=== PATIENT | female | born 1930 | race Caucasian/White ===

== ENCOUNTER 2017-11-24 18:03 | Inpatient (IN) | payer OTHER ==
[2017-11-24 19:03] LABS: Absolute Lymphocytes (CBC) 0.5 K/uL (0.7-4.9); Absolute Neutrophil 11.9 K/uL (1.8-8.0); Basophils % 0.1 % (0-1.3); Eosinophils % 0.3 % (0-4.4); Hematocrit 37.3 % (36.0-45.0); Lymphocytes % 3.4 % (15.3-44.8); MCH 28.6 pg (27.0-35.0); MCV 87.1 fL (80-100); MPV 8.3 fL (7.6-11.3); Monocytes % 7.2 % (3.3-12.3); RBC Red Blood Cell Count 4.28 M/uL (3.86-4.86)
[2017-11-24 19:12] LABS: Protime INR 1.18
[2017-11-24] MEDS ORDERED: NA CHLORIDE 0.9% 1,000 ML ONE (19:14)
[2017-11-24 19:26] LABS: Albumin 3.2 g/dL (3.4-5.0); Bilirubin Direct 0.3 mg/dL (0-0.2); CKMB Creatine Kinase MB 1.3 ng/mL (0.3-3.6); Potassium 3.1 mmol/L (3.5-5.1); Protein, Total 7.7 g/dL (6.4-8.2)
[2017-11-24 20:25] LABS: Urine Bacteria >50 /HPF (<20); Urine Culture Reflex Order REFLEXED; Urine Mucus 2+ /HPF (NONE SEEN); Urine RBC <5 /HPF (NONE SEEN)
[2017-11-24 20:26] LABS: Urine Blood 2+ (NEG); Urine Glucose NEGATIVE (NEG); Urine Protein 3+ (NEG)
--- NOTE | 2017-11-24 21:31 | RAD REPORT ---
EXAM DESCRIPTION: CT - Abdomen Pelvis W Contrast - 11/24/2017 9:11 pm CLINICAL HISTORY: Abdominal pain. Bladder cancer COMPARISON: 2014 TECHNIQUE: Computed axial tomography of the abdomen and pelvis was obtained. 100 cc Isovue-300 is ad ministered intravenously. Oral contrast was given. All CT scans are performed using dose optimization technique as appropriate and may include automated exposure control or mA/KV adjustment according to patient size. FINDINGS: The liver, spleen, and adrenals appear unremarkable. The pancreas is atrophic. The bladder has been resected. 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 Dilatation of portions o f the ureters are unchanged from the prior exam. Hydronephrosis is not noted. A 4 centimeter fluid co llection medial to the right kidney is unchanged and may represent a cyst. Diverticula stem from the colon without evidence of diverticulitis. Bilateral inguinal hernias contain small bowel. Mild dilatation of the small bowel within the hernia is present. Contrast enters the colon. A small hiatal hernia is seen. IMPRESSION: Bladder resection with right lower quadrant ileal conduit Bilateral inguinal hernias containing small bowel
--- NOTE | 2017-11-24 21:33 | RAD REPORT ---
EXAM DESCRIPTION: [place] Single View11/24/2017 6:59 pm CLINICAL HISTORY: Fever COMPARISON: 2014 FINDINGS: The lungs appear clear of acute infiltrate. The heart is normal size IMPRESSION: No acute abnormalities displayed
[2017-11-24] MEDS ORDERED: CEFTRIAXONE/SWI 1gm 1 GM/10 ML SYR ONE (21:43)
--- NOTE | 2017-11-24 21:51 | EDPHYS ---
Physician Documentation [facility] Name: Adriana Gomes Age: 87 yrs Sex: Female : 1930 Arrival Date: 11/24/2017 Time: 18:08 Bed 14 Private MD: Steven Tamayo V ED Physician Vladislav Zavala HPI: 11/24 18:28 This 87 yrs old Female presents to ER via Wheelchair with complaints of jmm Fever, Vomiting. 18:28 The patient reports fever, that was measured at 104 degrees Fahrenheit. Onset: The jmm symptoms/episode began/occurred gradually, 2 day(s) ago. This is an 87 year old female with a history of fever, cough for 2 days with vomiting today. Patient admits to abdominal pain. Patient also complains of bilateral back pain. . Historical: - Allergies: 18:13 Bactrim DS; sv - PMHx: 18:13 Dementia; bladder CA; Vulva CA; Uterus CA; sv - PSHx: 18:13 Heart stents; bladder removal; Hysterectomy; urostomy; sv - Immunization history:: Adult Immunizations up to date. - Social history:: Smoking status: Patient/guardian denies using tobacco. - Ebola Screening: : No symptoms or risks identified at this time. ROS: 18:28 Constitutional: Positive for fever. jmm 18:28 Abdomen/GI: Positive for abdominal pain, nausea and vomiting. 18:28 Back: Positive for pain at rest. 18:28 All other systems are negative. Exam: 18:28 Constitutional: This is a well developed, well nourished patient who is awake, alert, jmm and in no acute distress. Head/Face: atraumatic. Chest/axilla: Normal chest wall appearance and motion. Cardiovascular: Regular rate and rhythm. No edema appreciated 18:28 Respiratory: the patient does not display signs of respiratory distress, Respirations: normal, Breath sounds: are clear throughout. 18:28 Abdomen/GI: Inspection: abdomen appears normal, Bowel sounds: normal, Palpation: soft, mild abdominal tenderness, in all quadrants. 18:28 Skin: Appearance: Color: normal in color. 18:28 Neuro: Orientation: 18:28 Neuro: Motor: is normal. 18:28 Psych: Behavior/mood is pleasant, cooperative. Vital Signs: 18:13 BP 155 / 71; Pulse 104; Resp 18; Temp 100.7(O); Pulse Ox 92% on R/A; Weight 66.68 kg; sv Height 5 ft. 4 in. (162.56 cm); 19:20 BP 138 / 101; Pulse 92; Resp 18; Pulse Ox 96% on R/A; ao 19:55 BP 96 / 74; Pulse 86; Resp 16; Pulse Ox 100% ; ao 20:45 BP 159 / 72; Pulse 85; Resp 17; Pulse Ox 95% on R/A; Pain 0/10; ao 21:48 BP 157 / 64; Pulse 82; Resp 22; Pulse Ox 95% on R/A; Pain 0/10; ao 22:25 BP 152 / 63; Pulse 89; Resp 18; Temp 97.9(O); Pulse Ox 96% ; ao 18:13 Body Mass Index 25.23 (66.68 kg, 162.56 cm) sv MDM: 18:27 Patient medically screened. [facility] 21:46 Data reviewed: vital signs, nurses notes, lab test result(s). Counseling: I had a [facility] detailed discussion with the patient and/or guardian regarding: the historical points, exam findings, and any diagnostic results supporting the discharge/admit diagnosis, lab results, the need for further work-up and treatment in the hospital. Physician consultation: Rene Arriaga MD. 11/24 18:40 Order name: Basic Metabolic Panel; Complete Time: 19:29 [facility] 11/24 18:40 Order name: CBC with Diff; Complete Time: 19:06 [facility] 11/24 18:40 Order name: Ckmb; Complete Time: 19:29 [facility] 11/24 18:40 Order name: CPK; Complete Time: 19:29 [facility] 11/24 18:40 Order name: LFT's; Complete Time: 19:29 [facility] 11/24 18:40 Order name: Magnesium; Complete Time: 19:29 [facility] 11/24 18:40 Order name: NT PRO-BNP; Complete Time: 19:29 [facility] 11/24 18:40 Order name: PT-INR; Complete Time: 19:16 [facility] 11/24 18:40 Order name: Ptt, Activated; Complete Time: 19:16 [facility] 11/24 18:40 Order name: Troponin (emerg Dept Use Only); Complete Time: 19:23 [facility] 11/24 18:40 Order name: Procalcitonin; Complete Time: 19:29 [facility] 11/24 18:40 Order name: Lipase; Complete Time: 19:29 [facility] 11/24 18:40 Order name: Blood Culture Adult (2) [facility] 11/24 20:05 Order name: Urine Dipstick--Ancillary (enter results); Complete Time: 20:28 cc 11/24 18:40 Order name: XRAY Chest (1 view); Complete Time: 21:34 [facility] 11/24 18:40 Order name: EKG; Complete Time: 18:41 [facility] 11/24 18:40 Order name: Cardiac monitoring; Complete Time: 19:11 [facility] 11/24 18:40 Order name: EKG - Nurse/Tech; Complete Time: 19:21 [facility] 11/24 18:40 Order name: IV Saline Lock; Complete Time: 19:10 [facility] 11/24 18:40 Order name: Labs collected and sent; Complete Time: 19:10 [facility] 11/24 18:40 Order name: O2 Per Protocol; Complete Time: 19:10 [facility] 11/24 18:40 Order name: O2 Sat Monitoring; Complete Time: 19:10 [facility] 11/24 18:40 Order name: Urine Dipstick-Ancillary (obtain specimen); Complete Time: 20:03 [facility] 11/24 18:40 Order name: CT Abd/Pelvis - W/Contrast; Complete Time: 21:33 [facility] 11/24 20:07 Order name: Urine Microscopic Only 11/24 20:07 Order name: Urine Microscopic Only; Complete Time: 20:28 EDMS 11/24 20:25 Order name: Urine Culture EDAK Administered Medications: 19:40 Drug: NS 0.9% 500 ml Route: IV; Rate: bolus; Site: left antecubital; ao 21:00 Follow up: IV Status: Completed infusion; IV Intake: 500ml ao 21:47 Drug: Rocephin - (cefTRIAXone) 1 grams Route: IVPB; Infused Over: 30 mins; Site: left ao antecubital; 22:30 Follow up: Response: No adverse reaction; IV Status: Completed infusion; IV Intake: 10mlao Disposition: 11/25 07:24 Co-signature as Attending Physician, Vladislav Zavala MD. rn Disposition: 11/24/17 21:51 Hospitalization ordered by Rene Arriaga for Inpatient Admission. Preliminary diagnosis are Urinary tract infection, site not specified, Fever, unspecified, Vomiting. - Bed requested for Telemetry/MedSurg (Inpatient). - Status is Inpatient Admission. ao - Condition is Stable. - Problem is new. - Symptoms are unchanged. UTI on Admission? Yes Signatures: Dispatcher [employer] EDMS Becca Sethi RN Kori Gutierres RN RN mw Mickail, Joel, PA PA Vladislav Villalobos MD MD rn Ortiz, Alex, RN RN ao Corrections: (The following items were deleted from the chart) 11/24 21:56 21:51 Hospitalization Ordered by Rene Arriaga MD for Inpatient Admission. Preliminary diagnosis is Urinary tract infection, site not specified; Fever, unspecified; Vomiting. Bed requested for Telemetry/MedSurg (Inpatient). Status is Inpatient Admission. Condition is Stable. Problem is new. Symptoms are unchanged. UTI on Admission? Yes. [facility] 22:28 21:56 11/24/2017 21:51 Hospitalization Ordered by Rene Arriaga MD for Inpatient ao Admission. Preliminary diagnosis is Urinary tract infection, site not specified; Fever, unspecified; Vomiting. Bed requested for Telemetry/MedSurg (Inpatient). Status is Inpatient Admission. Condition is Stable. Problem is new. Symptoms are unchanged. UTI on Admission? Yes. kaylin
--- NOTE | 2017-11-24 21:51 | ER ---
Nurse's Notes [facility] Name: Adriana Gomes Age: 87 yrs Sex: Female : 1930 Arrival Date: 11/24/2017 Time: 18:08 Bed 14 Private MD: Steven Tamayo V Diagnosis: Urinary tract infection, site not specified;Fever, unspecified;Vomiting Presentation: 11/24 18:11 Presenting complaint: Child states: fever, not eating, and vomiting x 1 day. Tmax 101, sv tried to give Tylenol but pt was not cooperative. Transition of care: patient was not received from another setting of care. Onset of symptoms was November 23, 2017. Care prior to arrival: None. 18:11 Method Of Arrival: Wheelchair sv 18:11 Acuity: OSCAR 3 sv 19:07 Risk Assessment: Do you want to hurt yourself or someone else? Patient reports no ao desire to harm self or others. Initial Sepsis Screen: Does the patient meet any 2 criteria?. 19:55 Initial Sepsis Screen: Does the patient meet any 2 criteria? Altered Mental Status. Yes ao Does the patient have a suspected source of infection? Yes: Catheter related infection (Park/dialysis/PICC/central line). Triage Assessment: 19:08 GI: Reports Caregiver report SOB and vomiting. ao Historical: - Allergies: 18:13 Bactrim DS; sv - PMHx: 18:13 Dementia; bladder CA; Vulva CA; Uterus CA; sv - PSHx: 18:13 Heart stents; bladder removal; Hysterectomy; urostomy; sv - Immunization history:: Adult Immunizations up to date. - Social history:: Smoking status: Patient/guardian denies using tobacco. - Ebola Screening: : No symptoms or risks identified at this time. Screenin:07 Abuse screen: Denies threats or abuse. Denies injuries from another. Nutritional ao screening: No deficits noted. Tuberculosis screening: No symptoms or risk factors identified. Fall Risk Fall in past 12 months (25 points). Secondary diagnosis (15 points) dementia. Assessment: 19:05 General: Appears in no apparent distress. comfortable, Behavior is calm, cooperative. ao Pain: Unable to use pain scale. FLACC scale score is 0 out of 10. Neuro: Level of Consciousness is awake, obeys commands, Oriented to person, place, Weakness. Cardiovascular: Capillary refill < 3 seconds Patient's skin is warm and dry. Respiratory: Airway is patent Trachea midline Respiratory effort is even, unlabored, Respiratory pattern is regular, symmetrical, Breath sounds are clear bilaterally. GI: Abdomen is non-distended. : No signs and/or symptoms were reported regarding the genitourinary system. EENT: No signs and/or symptoms were reported regarding the EENT system. Derm: Skin is intact, Skin is pink, warm \T\ dry. Skin temperature is warm. Musculoskeletal: Circulation, motion, and sensation intact. Range of motion: intact in all extremities. 19:53 Reassessment: Patient had [address] was notified and started timing to get CT ao done. 20:30 Reassessment: Patient appears in no apparent distress at this time. Patient and/or ao family updated on plan of care and expected duration. Pain level reassessed. Patient is alert, oriented x 3, equal unlabored respirations, skin warm/dry/pink. 21:48 Reassessment: Patient appears in no apparent distress at this time. Patient and/or ao family updated on plan of care and expected duration. Pain level reassessed. Patient is alert, oriented x 3, equal unlabored respirations, skin warm/dry/pink. Delfino WATSON at bedside talking about a possible admission. Vital Signs: 18:13 BP 155 / 71; Pulse 104; Resp 18; Temp 100.7(O); Pulse Ox 92% on R/A; Weight 66.68 kg; sv Height 5 ft. 4 in. (162.56 cm); 19:20 BP 138 / 101; Pulse 92; Resp 18; Pulse Ox 96% on R/A; ao 19:55 BP 96 / 74; Pulse 86; Resp 16; Pulse Ox 100% ; ao 20:45 BP 159 / 72; Pulse 85; Resp 17; Pulse Ox 95% on R/A; Pain 0/10; ao 21:48 BP 157 / 64; Pulse 82; Resp 22; Pulse Ox 95% on R/A; Pain 0/10; ao 22:25 BP 152 / 63; Pulse 89; Resp 18; Temp 97.9(O); Pulse Ox 96% ; ao 18:13 Body Mass Index 25.23 (66.68 kg, 162.56 cm) sv ED Course: 18:08 Patient arrived in ED. sb2 18:08 Steven Tamayo MD is Private Physician. sb2 18:12 Triage completed. sv 18:20 Baltazar Rudd PA is PHCP. jmm 18:20 Vladislav Zavala MD is Attending Physician. jmm 18:40 Shawnee Blackwood, RN is Primary Nurse. ph 18:58 X-ray completed. Portable x-ray completed in exam room. Patient tolerated procedure jw2 well. 18:59 XRAY Chest (1 view) In Process Unspecified. EDMS 19:05 Primary Nurse role handed off by Shawnee Blackwood, RN ao 19:05 Walker Grande, RN is Primary Nurse. ao 19:05 First set of blood cultures drawn by me. cc 19:05 Inserted saline lock: 20 gauge in left antecubital area, using aseptic technique. Blood cc collected. 19:07 Arm band placed on right wrist. Patient placed in an exam room, on a stretcher, on ao youth nutritional monitor, on pulse oximetry. 19:08 Patient has correct armband on for positive identification. Fall risk band placed. Bed ao in low position. Call light in reach. Side rails up X2. youth nutritional monitor on. Pulse ox on. NIBP on. 19:21 EKG done, by ED staff, reviewed by Baltazar WATSON. cc 20:[address] kc3 21:11 CT Abd/Pelvis - W/Contrast In Process Unspecified. EDMS 21:38 Urine Microscopic Only Sent. ao 21:50 Rene Arriaga MD is Hospitalizing Provider. jmm 22:26 No provider procedures requiring assistance completed. Patient admitted, IV remains in ao place. Administered Medications: 19:40 Drug: NS 0.9% 500 ml Route: IV; Rate: bolus; Site: left antecubital; ao 21:00 Follow up: IV Status: Completed infusion; IV Intake: 500ml ao 21:47 Drug: Rocephin - (cefTRIAXone) 1 grams Route: IVPB; Infused Over: 30 mins; Site: left ao antecubital; 22:30 Follow up: Response: No adverse reaction; IV Status: Completed infusion; IV Intake: 10mlao Intake: 21:00 IV: 500ml; Total: 500ml. ao 22:30 IV: 10ml; Total: 510ml. ao Outcome: 21:51 Decision to Hospitalize by Provider. augusto 22:26 Admitted to Med/surg accompanied by tech, via stretcher, room 213, with chart, Report ao called to LULÚ Mayes 22:26 Condition: stable 22:26 Instructed on the need for admit. 22:28 Patient left the ED. ao Signatures: Dispatcher [employer] EDBecca Todd, LULÚ RN Baltazar Lala PA PA jmm Christian, Chelsea cc Shawnee Blackwood RN RN ph Ortiz, Alex, RN RN ao Wailes, Jenni jw2 Bita Arce kc3 Shea Steiner sb2 Corrections: (The following items were deleted from the chart) 19:12 19:11 Inserted saline lock: 20 gauge in left antecubital area, using aseptic technique. cc Blood collected. cc
[2017-11-24] MEDS ORDERED: ONDANSETRON 4 MG/2 ML VIAL IV PRN (22:03)
[2017-11-24] MEDS ORDERED: MORPHINE 2 MG/ML SYR IV PRN (22:03)
[2017-11-24] MEDS ORDERED: ACETAMINOPHEN 500 MG TAB PO PRN (22:03)
[2017-11-24] MEDS: NA CHLORIDE 0.9% 1,000 ML IV SCH (23:12)
[2017-11-25 00:53] VITALS: BMI 25.2
[2017-11-25 05:59] LABS: Absolute Lymphocytes (CBC) 0.4 K/uL (0.7-4.9); Absolute Monocytes 0.8 K/uL (0.1-1.3); Absolute Neutrophil 11.6 K/uL (1.8-8.0); Hematocrit 32.3 % (36.0-45.0); Lymphocytes % 3.3 % (15.3-44.8); MCH 28.6 pg (27.0-35.0); MCV 86.7 fL (80-100); MPV 8.4 fL (7.6-11.3); Monocytes % 6.1 % (3.3-12.3); RBC Red Blood Cell Count 3.73 M/uL (3.86-4.86)
--- NOTE | 2017-11-25 06:29 | EKG ---
Test Date: 2017-11-24 Test Time: 19:17:50 Straight Cutter Machine: LUIS FERNANDO MEASUREMENT RESULTS: Intervals: Rate: 89 OK: 142 QRSD: 78 QT: 388 QTc: 472 [place]: P: 64 OK: 142 QRS: -37 T: 35 INTERPRETIVE STATEMENTS: Normal sinus rhythm Left axis deviation Abnormal ECG Compared to ECG 10/12/2014 11:00:56 Atrial premature complex(es) no longer present Ventricular premature complex(es) no longer present Electronically Signed On 11-25-17 06:29:11 CDT by John Luo
[2017-11-25 06:42] LABS: Albumin 2.6 g/dL (3.4-5.0); Bilirubin Total 0.8 mg/dL (0.2-1.0); Blood Morphology Comment NOT SEEN (NOT SEEN); Platelet Estimate ADEQ; Potassium 2.7 mmol/L (3.5-5.1); Protein, Total 6.3 g/dL (6.4-8.2); Urine White Blood Cell Casts OK
[2017-11-25] MEDS: NA CHLORIDE 0.9% 1,000 ML IV SCH ×2 (06:50→11:59)
[2017-11-25] MEDS ORDERED: POTASSIUM PHOS 30 MM in NA CHLORIDE 0.9% 500 ML IV ONE (07:46)
[2017-11-25] MEDS ORDERED: POTASSIUM 25 MEQ EFFERV TAB PO ONE ×2 (07:47→17:00)
--- NOTE | 2017-11-25 07:52 | P.HP ---
Certification for Inpatient Patient admitted to: Inpatient With expected LOS: >2 Midnights Patient will require the following post-hospital care: None Practitioner: I am a practitioner with admitting privileges, knowledge of patient current condition, hospital course, and medical plan of care. Services: Services provided to patient in accordance with Admission requirements found in Title 42 Section 412.3 of the Code of Federal Regulations Patient History Date of Service: 11/24/17 Reason for admission: Fever, confusion, flank pain History of Present Illness: Patient is an 87-year-old female came to the hospital with abdominal discomfort along with fever, shakes, and chills. Patient lives at home with her and her daughter. They are her main caretakers. Patient has not been doing well clinically over the last few days. She has been running a temp of a 101 and she is been more confused. Patient has had a stroke and has dementia. She is also hard of hearing. I had a hard time communicating with her and her had to assist with most of her information. She is not been herself and she is requiring more support to care for her at home. Was having fevers and abdominal discomfort. They brought her into the emergency room and her workup revealed a urinary tract infection with symptoms of pyelonephritis. She has been having intractable nausea and vomiting for the last 48 hr as well. She appears to be dehydrated and she has generalized weakness. Will give her IV fluids and IV antibiotics and reassess her in the next 24-48 hr for possible discharge home. Allergies sulfamethoxazole [From Bactrim] Allergy (Verified 01/12/14 12:27) Unknown trimethoprim [From Bactrim] Allergy (Verified 01/12/14 12:27) Unknown lactose Adverse Reaction (Verified 01/12/14 12:26) Nausea/Vomiting Bactrim DS Allergy (Uncoded 11/24/17 22:31) Unknown Home Medications: Atorvastatin Calcium [Lipitor] 40 mg PO DAILY 01/12/14 Bimatoprost [Lumigan Opthalmic Drops*] 1 gtt EACH EYE BID 01/12/14 Budesonide/Formoterol Fumarate [Symbicort 160-4.5 Mcg Inhaler] 2 puff IH BID Fluticasone [Flonase 50MCG Nasal [place]*] 2 inhaler IH DAILY 01/12/14 Gabapentin [Neurontin*] 300 mg PO BEDTIME 01/12/14 Levothyroxine [Synthroid*] 75 mcg PO DAILY 01/12/14 Metoprolol Succinate [Toprol Xl*] 100 mg PO DAILY 01/12/14 Omeprazole [Prilosec] 20 mg PO DAILY 01/12/14 Quetiapine Fumarate [Seroquel] 50 mg PO BEDTIME 01/12/14 Tramadol HCl [Ultram] 50 mg PO Q6H PRN 01/12/14 Brimonidine Tartrate/Timolol [Combigan 0.2%-0.5% Eye Drops] 1 drop OP BID Amox/Clavulanate [Augmentin 875-125 Tab] 1 each PO BID #24 tab 10/15/14 - Past Medical/Surgical History Has patient received pneumonia vaccine in the past: Yes Diabetic: No -: Hypercholesterolemia -: Hypothyroidism -: HTN -: CAD -: Cardiac Stent -: Bladder Ca -: Uterus Ca -: Vulva Ca -: ovarian ca -: polio -: Bladder removed -: Cardiac Stent -: Stoma -: hysterectomy -: tonsilectomy - Family History Mother Medical History: Heart disease, Cancer Notes: mom- colon cancer - Social History Smoking Status: Never smoker Alcohol use: No CD- Drugs: No Caffeine use: Yes Place of Residence: Home Review of Systems 10-point ROS is otherwise unremarkable Physical Examination - Vital Signs Temperature: 97.9 F Blood Pressure: 119/55 Pulse: 90 Respirations: 16 Pulse Ox (%): 90 - Physical Exam General: Alert, In no apparent distress, Oriented x1, Demented, Confused HEENT: Atraumatic, PERRLA, Mucous membr. moist/pink, Other (decreased hearing), EOMI, Sclerae nonicteric Neck: Supple, 2+ carotid pulse no bruit, No LAD, Without JVD or thyroid abnormality Respiratory: Clear to auscultation bilaterally, Normal air movement Cardiovascular: Regular rate/rhythm, Normal S1 S2, No murmurs Gastrointestinal: Normal bowel sounds, Soft and benign, Non-distended, No tenderness Musculoskeletal: No clubbing, No swelling, No tenderness Integumentary: No rashes Neurological: Normal tone, Sensation intact, Cranial nerves 3-12 intact, Abnormal gait, Abnormal speech, Abnormal strength, Abnormal tone, Abnormal affect, Dementia Lymphatics: No axilla or inguinal lymphadenopathy - Studies Laboratory Data (last 24 hrs) 11/24/17 18:50: PT 14.0 H, INR 1.18, APTT 16.6 L 11/24/17 18:50: WBC 13.4 H, Hgb 12.2, Hct 37.3, Plt Count 271 11/24/17 18:50: Sodium 137, Potassium 3.1 L, BUN 11, Creatinine 1.00, Glucose 145 H, Magnesium 2.0, Total Bilirubin 1.0, AST 26, ALT 16, Alkaline Phosphatase 99, Lipase 54 L Assessment & Plan - Problems (Diagnosis) (1) Fever Current Visit: Yes Status: Acute (2) Pyelonephritis Current Visit: Yes Status: Acute (3) Intractable nausea and vomiting Current Visit: Yes Status: Acute (4) Leukocytosis Current Visit: Yes Status: Acute (5) Dementia Current Visit: Yes Status: Acute (6) CVA (cerebral vascular accident) Current Visit: Yes Status: Acute (7) History of bladder cancer Current Visit: Yes Status: Acute - Plan Plan: 1. Aggressive IV hydration 2. IV antibiotics 3. Monitor neuro status closely 4. Physical therapy evaluation 5. Resume home medications 6. Monitor electrolytes and renal function closely 7. Monitor nutritional status closely 8. GI and DVT prophylaxis Discharge Plan: Home Plan to discharge in: 48 Hours - Advance Directives Does patient have a Living Will: No Does patient have a Durable POA for Healthcare: Yes - Code Status/Comfort Care Code Status Assessed: Yes Code Status: Full Code Critical Care: No Time Spent Managing PTS Care (In Minutes): 50
[2017-11-25] MEDS ORDERED: CEFTRIAXONE 1 GM/NS 50 ML 1 GM/50 ML BAG IV SCH (09:00)
--- NOTE | 2017-11-25 11:59 | P.PN ---
Subjective Date of Service: 11/25/17 Chief Complaint: Fever, confusion, flank pain Patient seen and examined at bedside. Chart reviewed. Currently patient is not able to provide any information. He is alert however. At baseline is very demented. at bedside providing most of the information. Patient did not have any acute events overnight. No other complaints to offer. Review of Systems General: As per HPI Physical Examination - Vital Signs Temperature: 96.6 F Blood Pressure: 121/59 Pulse: 78 Respirations: 18 Pulse Ox (%): 95 - Physical Exam General: Alert, Oriented x1, Demented, Mild distress HEENT: Atraumatic, PERRLA, EOMI Neck: Supple, JVD not distended Respiratory: Clear to auscultation bilaterally, Normal air movement Cardiovascular: Regular rate/rhythm, Normal S1 S2 Gastrointestinal: Normal bowel sounds, Soft and benign, Non-distended, No tenderness Musculoskeletal: No tenderness Integumentary: No rashes Neurological: Normal speech, Normal tone, Normal affect Lymphatics: No axilla or inguinal lymphadenopathy - Studies Laboratory Data (last 24 hrs) 11/24/17 18:50: PT 14.0 H, INR 1.18, APTT 16.6 L 11/24/17 18:50: WBC 13.4 H, Hgb 12.2, Hct 37.3, Plt Count 271 11/24/17 18:50: Sodium 137, Potassium 3.1 L, BUN 11, Creatinine 1.00, Glucose 145 H, Magnesium 2.0, Total Bilirubin 1.0, AST 26, ALT 16, Alkaline Phosphatase 99, Lipase 54 L Medications List Reviewed: Yes Assessment & Plan - Problems (Diagnosis) (1) Sepsis Current Visit: Yes Status: Acute Plan: Sepsis 2.2 to UTI -Urine culture and Blood culture + for gram - rods -On zosyn for now -WBC and LA trending down -Will continue to observe -Repeat lab gaurang AM Qualifiers: Sepsis type: sepsis due to unspecified organism Qualified Code(s): A41.9 - Sepsis, unspecified organism (2) Bacteremia Current Visit: Yes Status: Acute Plan: See # 1 (3) UTI (urinary tract infection) Onset Date: 11/25/17 Current Visit: Yes Status: Acute Plan: See # 1 Qualifiers: Urinary tract infection type: acute cystitis Hematuria presence: without hematuria Qualified Code(s): N30.00 - Acute cystitis without hematuria (4) Dementia Onset Date: 11/25/17 Current Visit: Yes Status: Chronic Qualifiers: Dementia type: unspecified type Dementia behavioral disturbance: without behavioral disturbance Qualified Code(s): F03.90 - Unspecified dementia without behavioral disturbance (5) History of bladder cancer Onset Date: 11/25/17 Current Visit: Yes Status: Chronic (6) CVA (cerebral vascular accident) Onset Date: 11/25/17 Current Visit: Yes Status: Chronic Qualifiers: CVA mechanism: unspecified Qualified Code(s): I63.9 - Cerebral infarction, unspecified Discharge Plan: Home Plan to discharge in: 72 Hours - Code Status/Comfort Care Code Status Assessed: Yes Critical Care: No
[2017-11-25] MEDS: PIPER/TAZO/NS 3.375gm 3.375 GM/100 ML BAG IVPB SCH ×2 (12:01→16:54)
--- NOTE | 2017-11-25 18:22 | ECHO ---
HEIGHT: 5 ft 4 in WEIGHT: 147 lb 0 oz DATE OF STUDY: 11/25/[address]: Emely Tellez MD 2-DIMENSIONAL: YES M.MODE: YES DOPPLER: YES COLOR FLOW: YES TDS: PORTABLE: DEFINITY: BUBBLE STUDY: DIAGNOSIS: SHORTNESS OF BREATH CARDIAC HISTORY: CATHERIZATION: NO SURGERY: NO PROSTHETIC VALVE: NO PACEMAKER: NO MEASUREMENTS (cm) DIASTOLIC (NORMALS) SYSTOLIC (NORMALS) IVSd 0.7 (0.6-1.2) LA Diam 3.2 (1.9-4.0) LVEF 59% LVIDd 3.5 (3.5-5.7) LVIDs 2.4 (2.0-3.5) %FS 31% LVPWd 1.0 (0.6-1.2) Ao Diam 3.2 (2.0-3.7) 2 DIMENSIONAL ASSESSMENT: RIGHT ATRIUM: NORMAL LEFT ATRIUM: NORMAL RIGHT VENTRICLE: NORMAL LEFT VENTRICLE: NORMAL TRICUSPID VALVE: NORMAL MITRAL VALVE: NORMAL PULMONIC VALVE: NORMAL AORTIC VALVE: NORMAL PERICARDIAL EFFUSION: NONE AORTIC ROOT: NORMAL LEFT VENTRICULAR WALL MOTION: NORMAL DOPPLER/COLOR FLOW: MILD MITRAL REGURGITAION AND TRICUSPID REGURGITION. NORMAL RIGHT VENTRICULAR SYSTOLIC PRESSURE 38-40 mmHg. MILD PULMONARY HYPERTENSION. COMMENTS: NORMAL TWO DIMENSIONAL ECHOCARDIOGRAM. MILD MITRAL REGURGITATION AND TRICUSPID REGURGITATION. MILD PULMONARY HYPERTENSION. TECHNOLOGIST: ELIOT MONTGOMERY
[2017-11-25] MEDS ORDERED: CEFTRIAXONE/SWI 1gm 1 GM/10 ML SYR IV SCH (21:00)
[2017-11-25] MEDS: QUETIAPINE 25 MG TAB PO SCH (21:08)
[2017-11-25] MEDS: ATORVASTATIN 40 MG TAB PO SCH (21:08)
[2017-11-25] MEDS: Brimonidine Tartrate/Timolol [Combigan 0.2%-0.5% Eye Drops] OP SCH (21:17)
[2017-11-26] MEDS: PIPER/TAZO/NS 3.375gm 3.375 GM/100 ML BAG IVPB SCH ×3 (00:55→17:42)
[2017-11-26] MEDS: NA CHLORIDE 0.9% 1,000 ML IV SCH ×2 (01:40→15:08)
[2017-11-26 05:34] LABS: Potassium 3.2 mmol/L (3.5-5.1)
[2017-11-26] MEDS ORDERED: POTASSIUM 25 MEQ EFFERV TAB PO ONE (06:00)
[2017-11-26] MEDS: LEVOTHYROXINE SOD 0.075 MG TAB PO SCH (06:32)
[2017-11-26] MEDS: Brimonidine Tartrate/Timolol [Combigan 0.2%-0.5% Eye Drops] OP SCH ×2 (09:26→21:20)
[2017-11-26] MEDS: METOPROLOL XL 100 MG TAB PO SCH (09:26)
[2017-11-26] MEDS: LOSARTAN POTASSIUM 50 MG TABLET PO SCH (09:26)
--- NOTE | 2017-11-26 11:09 | P.PN ---
Subjective Date of Service: 11/26/17 Chief Complaint: Fever, confusion, flank pain Patient seen and examined at bedside. Chart reviewed. Currently pt remained Alerted. I am not aware of what patients baseline is but according to the at bedside pt is demented but a little more alerted than before still. Review of Systems General: As per HPI Physical Examination - Vital Signs Temperature: 97.6 F Blood Pressure: 148/73 Pulse: 87 Respirations: 16 Pulse Ox (%): 96 - Physical Exam General: Alert, In no apparent distress HEENT: Atraumatic, PERRLA, EOMI Neck: Supple, JVD not distended Respiratory: Clear to auscultation bilaterally, Normal air movement Cardiovascular: Regular rate/rhythm, Normal S1 S2 Gastrointestinal: Normal bowel sounds, No tenderness Musculoskeletal: No tenderness Integumentary: No rashes Neurological: Normal speech, Normal tone, Normal affect Lymphatics: No axilla or inguinal lymphadenopathy - Studies Medications List Reviewed: Yes Assessment & Plan - Problems (Diagnosis) (1) Sepsis Current Visit: Yes Status: Acute Plan: Sepsis 2.2 to UTI -Urine culture and Blood culture + ECOLI -On zosyn for now -Will continue to observe -Repeat lab gaurang AM Qualifiers: Sepsis type: sepsis due to unspecified organism Qualified Code(s): A41.9 - Sepsis, unspecified organism (2) Bacteremia Current Visit: Yes Status: Acute Plan: See # 1 (3) UTI (urinary tract infection) Onset Date: 11/25/17 Current Visit: Yes Status: Acute Plan: See # 1 Qualifiers: Urinary tract infection type: acute cystitis Hematuria presence: without hematuria Qualified Code(s): N30.00 - Acute cystitis without hematuria (4) Dementia Onset Date: 11/25/17 Current Visit: Yes Status: Chronic Qualifiers: Dementia type: unspecified type Dementia behavioral disturbance: without behavioral disturbance Qualified Code(s): F03.90 - Unspecified dementia without behavioral disturbance (5) History of bladder cancer Onset Date: 11/25/17 Current Visit: Yes Status: Chronic (6) CVA (cerebral vascular accident) Onset Date: 11/25/17 Current Visit: Yes Status: Chronic Qualifiers: CVA mechanism: unspecified Qualified Code(s): I63.9 - Cerebral infarction, unspecified Discharge Plan: [facility] Plan to discharge in: 24 Hours - Code Status/Comfort Care Code Status Assessed: Yes Critical Care: No
[2017-11-26] MEDS ORDERED: POTASSIUM CL SA 10 MEQ TAB PO ONE (13:22)
[2017-11-26] MEDS: ATORVASTATIN 40 MG TAB PO SCH (21:19)
[2017-11-26] MEDS: QUETIAPINE 25 MG TAB PO SCH (21:20)
[2017-11-26 23:31] VITALS: O2SAT 97
[2017-11-27] MEDS: PIPER/TAZO/NS 3.375gm 3.375 GM/100 ML BAG IVPB SCH ×2 (00:15→07:53)
[2017-11-27] MEDS: NA CHLORIDE 0.9% 1,000 ML IV SCH (00:16)
[2017-11-27 04:59] LABS: Potassium 3.6 mmol/L (3.5-5.1)
[2017-11-27] MEDS ORDERED: POTASSIUM CL SA 10 MEQ TAB PO ONE (05:12)
[2017-11-27] MEDS: LEVOTHYROXINE SOD 0.075 MG TAB PO SCH (06:00)
[2017-11-27] MEDS: METOPROLOL XL 100 MG TAB PO SCH (07:52)
[2017-11-27] MEDS: Brimonidine Tartrate/Timolol [Combigan 0.2%-0.5% Eye Drops] OP SCH (07:52)
[2017-11-27] MEDS: LOSARTAN POTASSIUM 50 MG TABLET PO SCH (07:52)
--- NOTE | 2017-11-27 11:06 | P.DS ---
Admission Date: 11/24/17 Discharge Date: 11/27/17 Disposition: ROUTINE DISCHARGE Discharge Condition: GOOD Reason for Admission: Fever, confusion, flank pain - Problems (1) Sepsis Current Visit: Yes Status: Acute Qualifiers: Sepsis type: sepsis due to unspecified organism Qualified Code(s): A41.9 - Sepsis, unspecified organism (2) Bacteremia Current Visit: Yes Status: Acute (3) UTI (urinary tract infection) Onset Date: 11/25/17 Current Visit: Yes Status: Acute Qualifiers: Urinary tract infection type: acute cystitis Hematuria presence: without hematuria Qualified Code(s): N30.00 - Acute cystitis without hematuria (4) Dementia Onset Date: 11/25/17 Current Visit: Yes Status: Chronic Qualifiers: Dementia type: unspecified type Dementia behavioral disturbance: without behavioral disturbance Qualified Code(s): F03.90 - Unspecified dementia without behavioral disturbance (5) History of bladder cancer Onset Date: 11/25/17 Current Visit: Yes Status: Chronic (6) CVA (cerebral vascular accident) Onset Date: 11/25/17 Current Visit: Yes Status: Chronic Qualifiers: CVA mechanism: unspecified Qualified Code(s): I63.9 - Cerebral infarction, unspecified Brief History of Present Illness: Patient is an 87-year-old female came to the hospital with abdominal discomfort along with fever, shakes, and chills. Patient lives at home with her and her daughter. They are her main caretakers. Patient has not been doing well clinically over the last few days. She has been running a temp of a 101 and she is been more confused. Patient has had a stroke and has dementia. She is also hard of hearing. I had a hard time communicating with her and her had to assist with most of her information. She is not been herself and she is requiring more support to care for her at home. Was having fevers and abdominal discomfort. They brought her into the emergency room and her workup revealed a urinary tract infection with symptoms of pyelonephritis. She has been having intractable nausea and vomiting for the last 48 hr as well. She appears to be dehydrated and she has generalized weakness. Will give her IV fluids and IV antibiotics and reassess her in the next 24-48 hr for possible discharge home. Hospital Course: Overall during the hospital stay patient remained stable Patient was initially admitted to the hospital for sepsis most likely secondary to UTI and was found to have bacteremia as well. Patient had a coli growing in her urine and thus was started on IV antibiotics. E. coli was susceptible to Levaquin and patient was switched over to oral Levaquin and had marked improvement in her symptoms. A PT was consulted here patient did work with physical therapy here in the hospital. At baseline patient is an advanced dementia alert and oriented times to her at bedside with intermittent confusion. Patient also is able to ambulate around the house but is very limited to the ambulation. At that time Case management to arrange for home health for [facility] and physical therapy. Patient was asked to follow up with primary care provider in regards to placement in detention versus home with providers. Patient was then discharged home under stable condition. Care was discussed with daughter at discharge who agrees with the plan. 5 home health will be consulted for home health needed for the patient. Patient will be taking Levaquin for total of 14 days. Vital Signs/Physical Exam: Temp Pulse Resp BP Pulse Ox 97.7 F 85 18 188/88 H 97 11/27/17 08:00 11/27/17 08:00 11/27/17 08:00 11/27/17 08:00 11/27/17 08:00 General: Alert, In no apparent distress, Oriented x2, Demented HEENT: Atraumatic, PERRLA, EOMI Neck: Supple, JVD not distended Respiratory: Clear to auscultation bilaterally, Normal air movement Cardiovascular: Regular rate/rhythm, Normal S1 S2 Gastrointestinal: Normal bowel sounds, No tenderness Musculoskeletal: No tenderness Integumentary: No rashes Neurological: Normal speech, Normal tone, Normal affect Lymphatics: No axilla or inguinal lymphadenopathy Laboratory Data at Discharge: WBC 12.8 K/uL (4.3-10.9) H 11/25/17 05:24 Hgb 10.6 g/dL (12.0-15.0) L 11/25/17 05:24 Hct 32.3 % (36.0-45.0) L 11/25/17 05:24 Plt Count 245 K/uL (152-406) 11/25/17 05:24 PT 14.0 SECONDS (9.5-12.5) H 11/24/17 18:50 INR 1.18 11/24/17 18:50 APTT 16.6 SECONDS (24.3-36.9) L 11/24/17 18:50 Sodium 143 mmol/L (136-145) 11/27/17 04:17 Potassium 3.6 mmol/L (3.5-5.1) 11/27/17 04:17 BUN 8 mg/dL (7-18) 11/27/17 04:17 Creatinine 0.80 mg/dL (0.55-1.3) 11/27/17 04:17 Glucose 93 mg/dL (74-106) 11/27/17 04:17 Magnesium 2.0 mg/dL (1.8-2.4) 11/24/17 18:50 Total Bilirubin 0.8 mg/dL (0.2-1.0) 11/25/17 05:24 AST 16 U/L (15-37) 11/25/17 05:24 ALT 12 U/L (12-78) 11/25/17 05:24 Alkaline Phosphatase 95 U/L (45-117) 11/25/17 05:24 Lipase 54 U/L (73-393) L 11/24/17 18:50 Home Medications: Atorvastatin Calcium [Lipitor] 40 mg PO BEDTIME 01/12/14 Bimatoprost [Lumigan Opthalmic Drops*] 1 gtt EACH EYE BEDTIME 01/12/14 Levothyroxine [Synthroid*] 75 mcg PO DAILY 01/12/14 Metoprolol Succinate [Toprol Xl*] 100 mg PO DAILY 01/12/14 Quetiapine Fumarate [Seroquel] 25 mg PO BEDTIME 01/12/14 Brimonidine Tartrate/Timolol [Combigan 0.2%-0.5% Eye Drops] 1 drop OP BID Losartan Potassium [Cozaar*] 50 mg PO DAILY 11/25/17 levoFLOXacin [Levaquin] 500 mg PO DAILY #14 tab 11/27/17 metroNIDAZOLE [Flagyl] 500 mg PO Q6H #42 tablet 11/27/17 New Medications: levoFLOXacin [Levaquin] 500 mg PO DAILY #14 tab metroNIDAZOLE [Flagyl] 500 mg PO Q6H #42 tablet Patient Discharge Instructions: Please f.u with PCP in 1 to 2 week post discharge. New medication. Levaquin 500mg Daily. Flagyl 500mg q8h daily. You are going to be reffered over to [facility] for Home SN and PT Diet: Regular Activity: Ad lennie Followup: Steven Tamayo MD [Primary Care Provider] - 1 Week
[2017-11-27 12:00] VITALS: BP 179/76; TEMP 97.4
== END 2017-11-27 14:55 | disposition home health service (06) | DRG 872 ==
LOC: ER 18:03 → ERHOLD 21:53 → 2ND 22:19
PROVIDERS: ADMIT Hospitalist; ATTEND Family Medicine
DX: A41.51 Sepsis due to Escherichia coli [E. coli] (principal); N30.00 Acute cystitis without hematuria; E86.0 Dehydration; F03.90 Unspecified dementia, unspecified severity, without behavioral disturbance, psychotic disturbance, mood disturbance, and anxiety; H91.90 Unspecified hearing loss, unspecified ear; I10 Essential (primary) hypertension; I25.10 Atherosclerotic heart disease of native coronary artery without angina pectoris; E03.9 Hypothyroidism, unspecified; E78.00 Pure hypercholesterolemia, unspecified; Z85.51 Personal history of malignant neoplasm of bladder; Z86.73 Personal history of transient ischemic attack (TIA), and cerebral infarction without residual deficits; Z88.2 Allergy status to sulfonamides; Z91.011 Allergy to milk products; Z95.5 Presence of coronary angioplasty implant and graft; Z85.43 Personal history of malignant neoplasm of ovary; Z85.42 Personal history of malignant neoplasm of other parts of uterus; Z86.12 Personal history of poliomyelitis
CPT/HCPCS: 36415; 71045; 74177; 80048; 80053; 80076; 81003; 81015; 82550; 82553; 83690; 83735; 83880; 84132; 84145; 84484; 85025; 85610; 85730; 87040; 87077; 87086; 87088; 87186; 87205; 93005; 93306; 96361; 96365; 97163; 99285; J0696; J2270; J2543; J7030; Q9967

== ENCOUNTER 2018-01-03 16:29 | Observation (INO) | payer OTHER ==
[2018-01-03] MEDS ORDERED: NA CHLORIDE 0.9% 2,000 ML ONE (16:59)
[2018-01-03 17:19] LABS: Absolute Lymphocytes (CBC) 1.9 K/uL (0.7-4.9); Absolute Monocytes 0.7 K/uL (0.1-1.3); Absolute Neutrophil 4.1 K/uL (1.8-8.0); Basophils % 1.1 % (0-1.3); Eosinophils % 5.8 % (0-4.4); Hematocrit 40.8 % (36.0-45.0); Lymphocytes % 26.8 % (15.3-44.8); MCH 28.8 pg (27.0-35.0); MCV 87.9 fL (80-100); MPV 8.4 fL (7.6-11.3); Monocytes % 9.3 % (3.3-12.3); RBC Red Blood Cell Count 4.64 M/uL (3.86-4.86)
--- NOTE | 2018-01-03 17:24 | RAD REPORT ---
EXAM DESCRIPTION: [place] Single View01/03/2018 5:14 pm CLINICAL HISTORY: Chest pain COMPARISON: November 2017 FINDINGS: The lungs appear clear of acute infiltrate. The heart is normal size IMPRESSION: No acute abnormalities displayed
--- NOTE | 2018-01-03 17:29 | RAD REPORT ---
EXAM DESCRIPTION: CT - Head Brain Wo Cont - 01/03/2018 5:17 pm CLINICAL HISTORY: Slurred speech since last night COMPARISON: 2014 TECHNIQUE: Computed axial tomography of the head was obtained. IV contrast was not requested. All CT scans are performed using dose optimization technique as appropriate and may include automated exposure control or mA/KV adjustment according to patient size. FINDINGS: An intracranial bleed is not seen . The ventricles are normal in caliber. No extra-axial fluid collection is noted. Moderate low-density areas within periventricular, deep and subcortical white matter likely represent ischemic changes secondary to small vessel disease. Fluid within the sinuses/ mastoids is not seen. IMPRESSION: No acute intracranial abnormality is seen. If patient's symptoms persist MRI of the bra in would be recommended.
[2018-01-03 17:41] LABS: Potassium 4.1 mmol/L (3.5-5.1)
[2018-01-03] MEDS ORDERED: CEFTRIAXONE/SWI 1gm 1 GM/10 ML SYR ONE (18:02)
[2018-01-03 18:35] LABS: Urine Culture Reflex Order NOT NEEDED
[2018-01-03 18:36] LABS: Urine Volume 1 ML
[2018-01-03 18:37] LABS: Urine Bacteria >50 /HPF (<20); Urine RBC NONE SEEN /HPF (NONE SEEN)
[2018-01-03 18:38] LABS: Urine Blood NEGATIVE (NEG); Urine Glucose NEGATIVE (NEG); Urine Protein NEGATIVE (NEG); Urine Specific Gravity 1.015 (1.005-1.030); Urine pH 6.5 (5.0-7.0)
--- NOTE | 2018-01-03 20:51 | ER ---
Nurse's Notes [facility] Name: Adriana Gomes Age: 87 yrs Sex: Female : 1930 Arrival Date: 01/03/2018 Time: 16:30 Bed 6 Private MD: Steven Tamayo V Diagnosis: Complicated UTI Presentation: 01/03 16:34 Presenting complaint: Sales/Marketing reports slurred speech since last night at 2100. jl7 Transition of care: patient was not received from another setting of care. Onset of symptoms was January 02, 2018 at 21:00. Risk Assessment: Do you want to hurt yourself or someone else? Patient reports no desire to harm self or others. Initial Sepsis Screen: Does the patient meet any 2 criteria? No. Patient's initial sepsis screen is negative. Does the patient have a suspected source of infection? No. Patient's initial sepsis screen is negative. Care prior to arrival: None. 16:34 Method Of Arrival: Wheelchair jl7 16:34 Acuity: OSCAR 3 jl7 19:00 No acute neurological deficit is noted. Pre-hospital glucose is not applicable to this bp patient. Triage Assessment: 19:00 The onset of the patients symptoms was January 02, 2018 at 21:00. bp 19:00 General: Appears in no apparent distress. comfortable, Behavior is AT BASELINE, PER bp FAMILY. 19:00 Neuro: Reports ALL SYMPTOMS RESOLVED TO BASELINE. bp Stroke Activation: Symptom onset > 6 hours Physician: Stroke Attending; Name: ; Notified At: ; Arrived At: Physician: Chief Stroke Resident; Name: ; Notified At: ; Arrived At: Physician: Stroke Resident; Name: ; Notified At: ; Arrived At: Physician: ED Attending; Name: ; Notified At: ; Arrived At: Physician: ED Resident; Name: ; Notified At: ; Arrived At: Historical: - Allergies: 16:52 Bactrim DS; mg2 - Home Meds: 16:52 aspirin 325 mg Oral TbEC once daily [Active]; atorvastatin 40 mg oral tab once daily mg2 [Active]; combigan opthalmi eye [Active]; gabapentin 300 mg oral cap 1 cap OD [Active]; Imodium Oral 2 mg daily [Active]; Levofloxacin Oral [Active]; losartan 50 mg oral tab 1 tab once daily [Active]; metoprolol tartrate 100 mg Oral tab 1 tab once daily [Active]; omeprazole 20 mg Oral cpDR 1 cap once daily [Active]; quetiapine 50 mg oral tab 1 tab at bedtime [Active]; tramadol 50 mg Oral tab 1 tab [Active]; venlafaxine 75 mg oral cp24 1 cap once daily [Active]; Zyrtec 10 mg Oral tab 1 tab once daily [Active]; - PMHx: 16:52 Bladder CA; Dementia; uterus CA; Vulva CA; mg2 - PSHx: 16:52 Cholecystectomy; mg2 - Immunization history:: Flu vaccine is not up to date. - Social history:: Smoking status: Patient/guardian denies using tobacco, Patient/guardian denies using alcohol, street drugs. - Ebola Screening: : No symptoms or risks identified at this time. Screenin:12 Abuse screen: Denies threats or abuse. Denies injuries from another. Nutritional mg2 screening: No deficits noted. Tuberculosis screening: No symptoms or risk factors identified. Fall Risk IV access (20 points). Assessment: 17:23 General: Appears in no apparent distress. comfortable, Behavior is calm, cooperative. mg2 Pain: Denies pain. Neuro: Level of Consciousness is awake, alert, obeys commands, Oriented to person, place, time, situation. Cardiovascular: Capillary refill < 3 seconds Patient's skin is warm and dry. Respiratory: Airway is patent Respiratory effort is even, unlabored, Respiratory pattern is regular, symmetrical. GI: No signs and/or symptoms were reported involving the gastrointestinal system. : No signs and/or symptoms were reported regarding the genitourinary system. EENT: No signs and/or symptoms were reported regarding the EENT system. Derm: Skin is intact, Skin is pink, warm \T\ dry. normal. Musculoskeletal: No signs and/or symptoms reported regarding the musculoskeletal system. 18:09 Patient has been NPO before screening. The patient is alert, and able to follow mg2 commands. The patient exhibits slurred or garbled speech. The patient is not exhibiting difficulty speaking. The patient does not exhibit difficulty understanding words. The patient is able to swallow own secretions with no drooling or need for suction. Patient tolerated one teaspoon of water. No drooling, immediate coughing, gurgling, or clearing of the throat was noted. The patient passed the bedside swallow screening. Oral medications may be given as ordered. Contact Physician for further diet orders. 18:09 The patient tolerated 90mL of water. No drooling, immediate coughing, gurgling, or bp clearing of the throat was noted. Provider notified of bedside swallow screening results: Kevin Hines MD. 19:00 Reassessment: RECD REPORT FROM XIAO CHINO. 87YO WF P/W R/O STROKE. PER FAMILY, INCREASED bp SLURRED SPEECH NOTED LAST PM. PT SPEECH SLURRED AT BASELINE AND ALTERED DUE TO H/O DEMENTIA. ADMIT IN PROCESS. 20:00 T-PA (Activase) Screening: Contraindications: Rapidly improving condition or minor bp deficit: Yes. Vital Signs: 16:52 BP 175 / 62; Pulse 60; Resp 18; Temp 98; Pulse Ox 100% on R/A; Weight 74.84 kg; Height mg2 5 ft. 4 in. (162.56 cm); 18:05 BP 180 / 77; Pulse 62; Resp 18; Pulse Ox 100% on R/A; Pain 0/10; mg2 19:00 BP 189 / 72; Pulse 60; Resp 12; Pulse Ox 96% ; bp 20:00 BP 192 / 78; Pulse 65; Resp 10; Pulse Ox 98% ; bp 21:30 BP 140 / 41; Pulse 70; Resp 16; Pulse Ox 95% ; bp 16:52 Body Mass Index 28.32 (74.84 kg, 162.56 cm) mg2 NIH Stroke Scale Scores: 18:09 NIHSS Score: 3 mg2 ED Course: 16:30 Patient arrived in ED. sb2 16:30 Steven Tamayo MD is Private Physician. sb2 16:30 Kevin Hines MD is Attending Physician. ps1 16:35 Triage completed. jl7 16:45 Killian Ferrell, LULÚ is Primary Nurse. mg2 16:53 Arm band placed on. mg2 17:11 No provider procedures requiring assistance completed. Inserted saline lock: 22 gauge mg2 in right antecubital area, using aseptic technique. Blood collected. by LULÚ Lee. 17:13 Chest Single View XRAY In Process Unspecified. EDMS 17:[address] nj 17:17 CT Head Brain wo Cont In Process Unspecified. EDMS 17:17 CT completed. Patient tolerated procedure well. Patient moved back from CT. nj 18:00 IV discontinued, intact, bleeding controlled, No redness/swelling at site. Pressure mg2 dressing applied. 18:01 Inserted saline lock: 20 gauge in left antecubital area, using aseptic technique. Blood mg2 collected. 19:00 Patient has correct armband on for positive identification. Placed in gown. Bed in low bp position. Side rails up X2. Adult w/ patient. 19:09 Primary Nurse role handed off by Killian Ferrell, LULÚ bp 19:09 Tr Bustos, LULÚ is Primary Nurse. bp 20:50 Steven Tamayo MD is Hospitalizing Provider. ps1 Administered Medications: 17:10 Drug: NS 0.9% (30 ml/kg) 30 ml/kg Route: IV; Rate: bolus; Site: right antecubital; mg2 19:00 Follow up: IV Status: Completed infusion bp 18:04 Drug: Rocephin - (cefTRIAXone) 1 grams Route: IVPB; Infused Over: 30 mins; Site: left mg2 antecubital; 22:14 Follow up: IV Status: Completed infusion bp Point of Care Testing: Blood Glucose: 17:22 Blood Glucose: 86 mg/dL; mg2 Ranges: Outcome: 20:50 Decision to Hospitalize by Provider. ps1 22:11 Admitted to Tele accompanied by tech, family with patient, via wheelchair, room 412, bp with chart, Report called to JEANIE CHINO 22:11 Condition: stable 22:11 Instructed on the need for admit. 22:15 Patient left the ED. bp NIH Stroke Scale - NIH Stroke Score Date: 01/03/2018 Time: 18:09 Total Score = 3 1a. Level of Consciousness (LOC) - 0(Alert) 1b. Level of Consciousness (LOC) (Year \T\ Age) - 0(Both) 1c. LOC Commands (Open \T\ Closes Eyes/Addressograph Operator) - 0(Both) 2. Best Gaze (Lateral Gaze Paresis) - 0(Normal) 3. Visual Field Loss - 1(Partial hemianopia) 4. Facial Palsy - 0(Normal) 5a. Left Arm: Motor (10-second hold) - 0(No drift) 5b. Right Arm: Motor (10-second hold) - 0(No drift) 6a. Left Leg: Motor (5-second hold - always test supine) - 0(No drift) 6b. Right Leg: Motor (5-second hold - always test supine) - 2(Drift, some effort against gravity) 7. Limb Ataxia (finger/nose \T\ heel/whitman - test with eyes open) - 0(Absent) 8. Sensory Loss (pinprick arms/legs/face) - 0(Normal) 9. Best Language: Aphasia (description/naming/reading) - 0(No aphasia) 10. Dysarthria (speech clarity - read or repeat words) - 0(Normal) 11. Extinction and Inattention (visual/tactile/auditory/spatial/personal) - 0(No abnormality) Initials: mg2 Signatures: Dispatcher [employer] EDMS Edis Bansal Jahala RN RN jl7 Tr Bustos RN RN bp Kevin Hines MD MD ps1 Billeau, Sheri sb2 Killian Ferrell, LULÚ RN mg2 Corrections: (The following items were deleted from the chart) 18:08 18:05 Pulse 62bpm; Resp 18bpm; Pulse Ox 100% RA; Pain 0/10; mg2 mg2 20:19 20:00 T-PA (Activase) Screening: Contraindications: Rapidly improving condition bp or minor deficit: bp
--- NOTE | 2018-01-03 20:51 | EDPHYS ---
Physician Documentation [facility] Name: Adriana Gomes Age: 87 yrs Sex: Female : 1930 Arrival Date: 01/03/2018 Time: 16:30 Bed 6 Private MD: Steven Tamayo V ED Physician Kevin Hines HPI: 01/03 20:50 This 87 yrs old Female presents to ER via Wheelchair with complaints of S/S ps1 of Possible Stroke. 20:50 patient has history of alzheimers with progressive decline history of bladder CA. ps1 Family states that she has been less active for 6 weeks and today was seen by home health care worker and was sent in for rule out stroke as she has had slurred speech. Family states that her speech is essentially the same but may be a bit deeper but she has been complaining of a sore throat. She has no upper or lower extremity weakness and no other FND. She has an ileostomy. . Historical: - Allergies: 16:52 Bactrim DS; mg2 - Home Meds: 16:52 aspirin 325 mg Oral TbEC once daily [Active]; atorvastatin 40 mg oral tab once daily mg2 [Active]; combigan opthalmi eye [Active]; gabapentin 300 mg oral cap 1 cap OD [Active]; Imodium Oral 2 mg daily [Active]; Levofloxacin Oral [Active]; losartan 50 mg oral tab 1 tab once daily [Active]; metoprolol tartrate 100 mg Oral tab 1 tab once daily [Active]; omeprazole 20 mg Oral cpDR 1 cap once daily [Active]; quetiapine 50 mg oral tab 1 tab at bedtime [Active]; tramadol 50 mg Oral tab 1 tab [Active]; venlafaxine 75 mg oral cp24 1 cap once daily [Active]; Zyrtec 10 mg Oral tab 1 tab once daily [Active]; - PMHx: 16:52 Bladder CA; Dementia; uterus CA; Vulva CA; mg2 - PSHx: 16:52 Cholecystectomy; mg2 - Immunization history:: Flu vaccine is not up to date. - Social history:: Smoking status: Patient/guardian denies using tobacco, Patient/guardian denies using alcohol, street drugs. - Ebola Screening: : No symptoms or risks identified at this time. ROS: 20:50 Constitutional: Negative for fever, chills, and weight loss, Eyes: Negative for injury, ps1 pain, redness, and discharge, Cardiovascular: Negative for chest pain, palpitations, and edema, Respiratory: Negative for shortness of breath, cough, wheezing, and pleuritic chest pain, Abdomen/GI: Negative for abdominal pain, nausea, vomiting, diarrhea, and constipation, MS/Extremity: Negative for injury and deformity. 20:50 Neuro: Positive for fatigue and malaise, progressive decline and recent amnesia and forgetfulness. Exam: 20:50 Radiologist reports: no stroke ps1 20:50 Constitutional: This is a well developed, well nourished patient who is awake, alert, and in no acute distress. Head/Face: Normocephalic, atraumatic. Chest/axilla: Normal chest wall appearance and motion. Nontender with no deformity. No lesions are appreciated. Cardiovascular: Regular rate and rhythm. No gallops, murmurs, or rubs. Normal PMI, no JVD. No pulse deficits. Respiratory: Lungs have equal breath sounds bilaterally, clear to auscultation and percussion. No rales, rhonchi or wheezes noted. No increased work of breathing, no retractions or nasal flaring. Abdomen/GI: Soft, non-tender, with normal bowel sounds. No distension or tympany. No guarding or rebound. No evidence of tenderness throughout. Skin: Warm, dry with normal turgor. Normal color with no rashes, no lesions, and no evidence of cellulitis. MS/ Extremity: Pulses equal, no cyanosis. Neurovascular intact. Full, normal range of motion. Psych: Awake, alert, with orientation to person, place and time. Behavior, mood, and affect are within normal limits. 20:50 Neuro: Orientation: to person, place, Not oriented to situation, Memory: immediate memory is impaired, remote memory is intact. Motor: is normal, moves all fours. Vital Signs: 16:52 BP 175 / 62; Pulse 60; Resp 18; Temp 98; Pulse Ox 100% on R/A; Weight 74.84 kg; Height mg2 5 ft. 4 in. (162.56 cm); 18:05 BP 180 / 77; Pulse 62; Resp 18; Pulse Ox 100% on R/A; Pain 0/10; mg2 19:00 BP 189 / 72; Pulse 60; Resp 12; Pulse Ox 96% ; bp 20:00 BP 192 / 78; Pulse 65; Resp 10; Pulse Ox 98% ; bp 21:30 BP 140 / 41; Pulse 70; Resp 16; Pulse Ox 95% ; bp 16:52 Body Mass Index 28.32 (74.84 kg, 162.56 cm) mg2 NIH Stroke Scale Scores: 18:09 NIHSS Score: 3 mg2 MDM: 16:46 Patient medically screened. ps1 20:50 Data reviewed: vital signs, nurses notes, lab test result(s), EKG, radiologic studies, ps1 CT scan, and as a result, I will continue to observe the patient. Counseling: I had a detailed discussion with the patient and/or guardian regarding: the historical points, exam findings, and any diagnostic results supporting the discharge/admit diagnosis, lab results, radiology results, the need for further work-up and treatment in the hospital. 01/03 16:45 Order name: Basic Metabolic Panel; Complete Time: 17:50 ps1 01/03 16:45 Order name: Blood Culture Adult (2) ps1 01/03 16:45 Order name: CBC with Diff; Complete Time: 17:50 ps1 01/03 16:45 Order name: Lactate; Complete Time: 17:50 ps1 01/03 16:45 Order name: Lipase; Complete Time: 17:50 ps1 01/03 16:45 Order name: Troponin (emerg Dept Use Only); Complete Time: 17:50 ps1 01/03 16:45 Order name: Chest Single View XRAY; Complete Time: 17:26 ps1 01/03 17:47 Order name: Urine Culture mg2 01/03 17:47 Order name: Urine Microscopic Only; Complete Time: 18:43 mg2 01/03 18:14 Order name: Urine Dipstick--Ancillary (enter results); Complete Time: 18:43 bd 01/03 21:33 Order name: Basic Metabolic Panel EDMS 01/03 21:33 Order name: Basic Metabolic Panel EDMS 01/03 21:33 Order name: CBC with Automated Diff EDMS 01/03 21:33 Order name: CBC with Automated Diff EDMS 01/03 16:45 Order name: Accucheck; Complete Time: 17:11 ps1 01/03 16:45 Order name: Cardiac monitoring; Complete Time: 17:11 ps1 01/03 16:45 Order name: EKG - Nurse/Tech; Complete Time: 19:15 01/03 16:45 Order name: IV Saline Lock - Large Bore; Complete Time: 17:11 [facility] 01/03 16:45 Order name: Labs collected and sent; Complete Time: 17:11 [facility] 01/03 16:45 Order name: O2 Per Protocol; Complete Time: 17:11 [facility] 01/03 16:45 Order name: O2 Sat Monitoring; Complete Time: 17:11 [facility] 01/03 16:45 Order name: Urine Dipstick-Ancillary (obtain specimen); Complete Time: 17:46 01/03 16:45 Order name: CT Head Brain wo Cont; Complete Time: 17:31 [facility] 01/03 21:33 Order name: Regular EDMS Administered Medications: 17:10 Drug: NS 0.9% (30 ml/kg) 30 ml/kg Route: IV; Rate: bolus; Site: right antecubital; mg2 19:00 Follow up: IV Status: Completed infusion bp 18:04 Drug: Rocephin - (cefTRIAXone) 1 grams Route: IVPB; Infused Over: 30 mins; Site: left mg2 antecubital; 22:14 Follow up: IV Status: Completed infusion bp Point of Care Testing: Blood Glucose: 17:22 Blood Glucose: 86 mg/dL; mg2 Ranges: Critical Glucose Levels:Adult <50 mg/dl or >400 mg/dl <40 mg/dl or >180 mg/dl Disposition: 01/03/18 20:50 Hospitalization ordered by Steven Tamayo for Observation. Preliminary diagnosis is Complicated UTI. - Bed requested for Telemetry/MedSurg (observation). - Status is Observation. bp - Condition is Stable. - Problem is chronic. - Symptoms have worsened. UTI on Admission? Yes NIH Stroke Scale - NIH Stroke Score Date: 01/03/2018 Time: 18:09 Total Score = 3 1a. Level of Consciousness (LOC) - 0(Alert) 1b. Level of Consciousness (LOC) (Year \T\ Age) - 0(Both) 1c. LOC Commands (Open \T\ Closes Eyes/Energy Efficiency Finance Manager) - 0(Both) 2. Best Gaze (Lateral Gaze Paresis) - 0(Normal) 3. Visual Field Loss - 1(Partial hemianopia) 4. Facial Palsy - 0(Normal) 5a. Left Arm: Motor (10-second hold) - 0(No drift) 5b. Right Arm: Motor (10-second hold) - 0(No drift) 6a. Left Leg: Motor (5-second hold - always test supine) - 0(No drift) 6b. Right Leg: Motor (5-second hold - always test supine) - 2(Drift, some effort against gravity) 7. Limb Ataxia (finger/nose \T\ heel/whitman - test with eyes open) - 0(Absent) 8. Sensory Loss (pinprick arms/legs/face) - 0(Normal) 9. Best Language: Aphasia (description/naming/reading) - 0(No aphasia) 10. Dysarthria (speech clarity - read or repeat words) - 0(Normal) 11. Extinction and Inattention (visual/tactile/auditory/spatial/personal) - 0(No abnormality) Initials: mg2 Signatures: Dispatcher [employer] EDMS Frank Bermanburn rg2 Tr Bustos, LULÚ RN bp Kevin Hines MD MD ps1 Killian Ferrell RN RN mg2 Corrections: (The following items were deleted from the chart) 21:46 20:50 Hospitalization Ordered by Steven Tamayo MD for Observation. Preliminary rg2 diagnosis is Complicated UTI. Bed requested for Telemetry/MedSurg (observation). Status is Observation. Condition is Stable. Problem is chronic. Symptoms have worsened. UTI on Admission? Yes. ps1 22:15 21:46 01/03/2018 20:50 Hospitalization Ordered by Steven Tamayo MD for bp Observation. Preliminary diagnosis is Complicated UTI. Bed requested for Telemetry/MedSurg (observation). Status is Observation. Condition is Stable. Problem is chronic. Symptoms have worsened. UTI on Admission? Yes. rg2
[2018-01-03] MEDS ORDERED: ACETAMINOPHEN 500 MG TAB PO PRN (21:27)
[2018-01-03] MEDS ORDERED: QUETIAPINE 25 MG TAB PO ONE (22:09)
[2018-01-03 22:43] VITALS: BMI 23.2
[2018-01-04 06:32] LABS: Absolute Lymphocytes (CBC) 1.7 K/uL (0.7-4.9); Absolute Monocytes 0.6 K/uL (0.1-1.3); Absolute Neutrophil 3.9 K/uL (1.8-8.0); Basophils % 0.6 % (0-1.3); Eosinophils % 5.9 % (0-4.4); Hematocrit 36.1 % (36.0-45.0); Lymphocytes % 25.1 % (15.3-44.8); MCH 29.1 pg (27.0-35.0); MCV 87.6 fL (80-100); MPV 8.2 fL (7.6-11.3); Monocytes % 9.1 % (3.3-12.3); RBC Red Blood Cell Count 4.12 M/uL (3.86-4.86)
[2018-01-04 06:42] LABS: Potassium 3.8 mmol/L (3.5-5.1)
--- NOTE | 2018-01-04 07:50 | EKG ---
Test Date: 2018-01-03 Test Time: 18:19:30 Resin Painter: MEASUREMENT RESULTS: Intervals: Rate: 60 AK: 152 QRSD: 80 QT: 462 QTc: 462 Pierce: P: 54 AK: 152 QRS: -34 T: 13 INTERPRETIVE STATEMENTS: Normal sinus rhythm Left axis deviation Possible Anterior infarct, age undetermined Abnormal ECG Compared to ECG 11/24/2017 19:17:50 Myocardial infarct finding now present Electronically Signed On 01-04-18 07:49:40 CDT by John Luo
[2018-01-04] MEDS ORDERED: LOPERAMIDE HCL PO PRN (08:21)
[2018-01-04] MEDS ORDERED: TRAMADOL HCL 50 MG TAB PO PRN (08:21)
[2018-01-04] MEDS: ATORVASTATIN 40 MG TAB PO SCH (08:54)
[2018-01-04] MEDS: VENLAFAXINE HCL 75 MG TABLET PO SCH (08:55)
[2018-01-04] MEDS: LEVOTHYROXINE SOD 0.075 MG TAB PO SCH (08:55)
[2018-01-04] MEDS: GABAPENTIN 300 MG CAP PO SCH (08:55)
[2018-01-04] MEDS ORDERED: HOME MED 1 EA UNK (Cetirizine Hcl [Zyrtec] 1 TAB) PO SCH (09:00)
[2018-01-04] MEDS ORDERED: HOME MED 1 EA UNK (Brimonidine Tartrate/Timolol [Combigan 0.2%-0.5% Eye Drops] 1 DROP) EACH EYE SCH (09:00)
[2018-01-04] MEDS ORDERED: ASPIRIN 325 MG TAB PO SCH (09:00)
[2018-01-04] MEDS ORDERED: HOME MED 1 EA UNK (Bimatoprost [Lumigan Opthalmic Drops*] 1 DROP) EACH EYE SCH (09:00)
[2018-01-04] MEDS ORDERED: METOPROLOL SUCCINATE 100 MG PO SCH (09:00)
--- NOTE | 2018-01-04 12:54 | P.HP ---
Certification for Inpatient Patient admitted to: Inpatient With expected LOS: >2 Midnights Practitioner: I am a practitioner with admitting privileges, knowledge of patient current condition, hospital course, and medical plan of care. Services: Services provided to patient in accordance with Admission requirements found in Title 42 Section 412.3 of the Code of Federal Regulations Patient History Date of Service: 01/04/18 Reason for admission: ALTERED MENTAL STATUS History of Present Illness: MS APPLE HAS SEVERE DEMENTIA, COME WITH LETHARGY AND SLURRED SPEECH. SHE HAS CT SCAN THAT WAS NEGATIVE FOR BRAIN. US WAS DONE FROM THE ILEOSTOMY BAG AND WAS NOT IMPRESSIVE. SHE WILL GET MRI TODAY. SHE DOES HAVE SPEECH THAT IS SLURRED. Allergies sulfamethoxazole [From Bactrim] Allergy (Verified 01/03/18 22:42) Unknown trimethoprim [From Bactrim] Allergy (Verified 01/03/18 22:42) Unknown lactose Adverse Reaction (Verified 01/03/18 22:42) Nausea/Vomiting Bactrim DS Allergy (Uncoded 01/03/18 22:42) Unknown Home Medications: Aspirin 1 tab PO DAILY 01/04/18 Atorvastatin Calcium [Lipitor] 40 mg PO DAILY 01/04/18 Bimatoprost [Lumigan Opthalmic Drops*] 1 drop EACH EYE DAILY 01/04/18 Brimonidine Tartrate/Timolol [Combigan 0.2%-0.5% Eye Drops] 1 drop EACH EYE DAILY 01/04/18 Cetirizine HCl [Zyrtec] 1 tab PO DAILY 01/04/18 Gabapentin [Neurontin*] 1 tab PO DAILY 01/04/18 Levothyroxine [Synthroid] 75 mcg PO DAILY 01/04/18 Loperamide HCl [Imodium A-D] 1 tab PO DAILY PRN 01/04/18 Metoprolol Succinate [Toprol Xl] 100 mg PO DAILY 01/04/18 Omeprazole 1 tab PO DAILY 01/04/18 Quetiapine [Seroquel] 50 mg PO BEDTIME 01/04/18 Tramadol HCl [Ultram] 1 tab PO BID PRN 01/04/18 Venlafaxine HCl 1 tab PO DAILY 01/04/18 - Past Medical/Surgical History Has patient received pneumonia vaccine in the past: Yes Diabetic: No -: Hypercholesterolemia -: Hypothyroidism -: HTN -: CAD -: Cardiac Stent -: Bladder Ca -: Uterus Ca -: Vulva Ca -: ovarian ca -: polio -: Bladder removed -: Cardiac Stent -: Stoma -: hysterectomy -: tonsillectomy - Family History Father -: Other (see notes) Notes: heart attack Mother -: Heart disease, Cancer Notes: mom- colon cancer - Social History Smoking Status: Never smoker Alcohol use: No CD- Drugs: No Caffeine use: Yes Place of Residence: Home Review of Systems 10-point ROS is otherwise unremarkable General: Weakness, Malaise Neurological: Change in Speech, Confusion Physical Examination - Vital Signs Temperature: 98.7 F Blood Pressure: 162/74 Pulse: 79 Respirations: 18 Pulse Ox (%): 97 - Physical Exam General: Mild distress, Confused HEENT: Atraumatic, PERRLA, Mucous membr. moist/pink, EOMI, Sclerae nonicteric Neck: Supple, 2+ carotid pulse no bruit, No LAD, Without JVD or thyroid abnormality Respiratory: Clear to auscultation bilaterally, Normal air movement Cardiovascular: Regular rate/rhythm, Normal S1 S2 Gastrointestinal: Normal bowel sounds, No tenderness Musculoskeletal: No tenderness Integumentary: No rashes Neurological: Abnormal speech (SLURRED AND AT TIMES DOES NOT HAVE LEGIBLE WORDS. ) Lymphatics: No axilla or inguinal lymphadenopathy - Studies Laboratory Data (last 24 hrs) 01/03/18 16:50: Sodium 139, Potassium 4.1, BUN 14, Creatinine 1.00, Glucose 87, Lipase 110 01/03/18 16:45: WBC 7.2, Hgb 13.4, Hct 40.8, Plt Count 286 Assessment and Plan - Problems (Diagnosis) (1) Altered mental state Current Visit: Yes Status: Acute Plan: THIS CAN BE FROM CVA WILL ORDER MRI SHE IS ALREADY ON ASA AND STATIN NOT MUCH CAN BE DONE WITH STROKE WHEN YOU ALREADY HAVE SEVERE DEMENTIA. Qualifiers: Altered mental status type: disorientation Qualified Code(s): R41.0 - Disorientation, unspecified (2) Aphasia Current Visit: Yes Status: Acute Plan: ABOVE (3) Dementia Onset Date: 11/25/17 Current Visit: No Status: Chronic Qualifiers: Dementia type: Alzheimer's disease Alzheimer's disease onset: late-onset Dementia behavioral disturbance: without behavioral disturbance Qualified Code (s): G30.1 - Alzheimer's disease with late onset; F02.80 - Dementia in other diseases classified elsewhere without behavioral disturbance - Advance Directives Does patient have a Living Will: No Does patient have a Durable POA for Healthcare: Yes
[2018-01-04] MEDS ORDERED: LORazepam 2 MG/ML VIAL IV ONE (14:54)
--- NOTE | 2018-01-04 15:32 | RAD REPORT ---
EXAM DESCRIPTION: MRI - Brain Wo Cont - 01/04/2018 3:22 pm CLINICAL HISTORY: Slurred speech COMPARISON: January 03, [address] TECHNIQUE: Axial, sagittal, and coronal magnetic images of the brain were obtained. Contrast was not requested FINDINGS: Moderate signal is present within periventricular, deep and subcortical white matter bilat erally. Diffusion-weighted/ADC mapping demonstrates a 10 x 2 millimeter area of abnormal signal within the de ep white matter of the posterior right frontal lobe . The ventricles are normal caliber. An extra-axial fluid collection is not present Fluid within the sinuses/mastoids is not seen IMPRESSION: A 10 x 2 millimeter acute infarct within the deep white matter of the posterior right fr ontal lobe The exam was discussed with Dr. Tamayo 3:25 p.m. January 04, 2018
[2018-01-04] MEDS: CLOPIDOGREL 75 MG TABLET PO SCH (17:30)
[2018-01-04] MEDS ORDERED: ENOXAPARIN 40 MG/0.4 ML SQ SCH (17:30)
[2018-01-04] MEDS ORDERED: QUETIAPINE 25 MG TAB PO ONE (22:09)
[2018-01-04] MEDS: METOPROLOL TARTRATE 5 MG/5 ML INJ IV SCH (22:11)
[2018-01-05] MEDS: METOPROLOL TARTRATE 5 MG/5 ML INJ IV SCH ×5 (02:27→13:23)
[2018-01-05] MEDS ORDERED: ZIPRASIDONE MESYLA 20 MG/VIAL IM PRN (06:07)
[2018-01-05] MEDS ORDERED: WATER FOR INJ,STERILE 10 ML IM PRN (06:07)
[2018-01-05] MEDS ORDERED: PANTOPRAZOLE 40MG TABLET PO SCH (06:30)
[2018-01-05] MEDS: ATORVASTATIN 40 MG TAB PO SCH (09:00)
[2018-01-05] MEDS: LEVOTHYROXINE SOD 0.075 MG TAB PO SCH (09:00)
[2018-01-05] MEDS: GABAPENTIN 300 MG CAP PO SCH (09:00)
[2018-01-05] MEDS: VENLAFAXINE HCL 75 MG TABLET PO SCH (09:00)
[2018-01-05] MEDS: CLOPIDOGREL 75 MG TABLET PO SCH (09:00)
[2018-01-05 10:56] VITALS: O2SAT 93
[2018-01-05 12:12] VITALS: TEMP 97.3
[2018-01-05] MEDS ORDERED: CLONIDINE 0.2 MG/PATCH TD SCH (14:30)
[2018-01-05 18:41] VITALS: BP 172/88
== END 2018-01-05 18:21 | disposition hospice, home (50) ==
LOC: ER 16:29 → 4TH 20:50 → OBSVTOIN 01-04 12:49 → INTOOBSV 01-04 12:49
PROVIDERS: ADMIT Internal Medicine; ATTEND Internal Medicine
DX: R41.82 Altered mental status, unspecified (principal); R47.01 Aphasia; G30.1 Alzheimer's disease with late onset; F02.80 Dementia in other diseases classified elsewhere, unspecified severity, without behavioral disturbance, psychotic disturbance, mood disturbance, and anxiety; E78.00 Pure hypercholesterolemia, unspecified; E03.9 Hypothyroidism, unspecified; I10 Essential (primary) hypertension; I25.10 Atherosclerotic heart disease of native coronary artery without angina pectoris; Z93.2 Ileostomy status; Z88.2 Allergy status to sulfonamides; Z88.1 Allergy status to other antibiotic agents; Z91.011 Allergy to milk products; Z79.82 Long term (current) use of aspirin; Z95.5 Presence of coronary angioplasty implant and graft; Z85.43 Personal history of malignant neoplasm of ovary; Z85.42 Personal history of malignant neoplasm of other parts of uterus; Z85.51 Personal history of malignant neoplasm of bladder; Z86.12 Personal history of poliomyelitis
CPT/HCPCS: 36415 ×2; 70450; 70551; 71045; 80048 ×2; 82962; 83605; 83690; 83721; 84484; 85025 ×2; 87040 ×2; 87077 ×3; 87086; 87088; 87186 ×3; 93005; 99285; G0378 ×2; J0696; J1650; J3486; J7030; 81003; 81015